=== PATIENT | female | born 1965 | race American Indian/Alaskan Native ===

== ENCOUNTER 2017-03-11 11:20 | Emergency (ER) | payer MEDICARE ==
[2017-03-11 12:04] VITALS: BP 142/78
--- NOTE | 2017-03-11 15:22 | Emergency Department Report ---
HPI - General Chief Complaint: Extremity Injury, Lower Time Seen by Provider: 03/11/17 15:07 - HPI HPI: This is a 52-year-old female with a history of third on Synthroid who presents to ED complaining of ankle pain the past 2 weeks. Patient states about 2 days ago the pain and ankle started getting worse. Patient states pain is aggravated by walking. She denies recent trauma or fall to the ankle. Patient denies fever/chills/nausea/vomiting/abdominal pain/chest pain/shortness of breath/pulmonary vision such headache or any other problems ED Past Medical Hx - Past Medical History Previous Medical History?: Yes Additional medical history: thyroid dis, anxiety, tendonitis, Left hip pain, Sciatica - Surgical History Past Surgical History?: Yes Additional Surgical History: Thyroidectomy, R. elbow repair. Partial hysterectomy - Social History Smoking Status: Never Smoker Substance Use Type: Alcohol, Prescribed - Medications Home Medications: Home Medications Medication Instructions Recorded Confirmed Last Taken Type Cyclobenzaprine [Flexeril] 10 mg PO QHS PRN #20 tablet 03/11/17 Unknown Rx Ibuprofen [Motrin 800 MG tab] 800 mg PO Q8HR PRN #20 tablet 03/11/17 Unknown Rx ED Review of Systems ROS: Stated complaint: LFT ANKLE/HIP PAIN Other details as noted in HPI Constitutional: denies: chills, fever Eyes: denies: eye pain, eye discharge, vision change ENT: denies: ear pain, throat pain Respiratory: denies: cough, shortness of breath, wheezing Cardiovascular: denies: chest pain, palpitations Endocrine: no symptoms reported Gastrointestinal: denies: abdominal pain, nausea, vomiting, diarrhea, constipation Genitourinary: denies: urgency, dysuria, frequency, hematuria, discharge Musculoskeletal: denies: back pain, joint swelling, arthralgia Skin: denies: rash, lesions Neurological: denies: headache, weakness, numbness, paresthesias Psychiatric: denies: anxiety, depression Hematological/Lymphatic: denies: easy bleeding, easy bruising Physical Exam - Physical Exam Vital Signs: Vital Signs 03/11/17 11:59 Temperature 97.8 F Pulse Rate 74 Respiratory 14 Rate Blood Pressure 142/78 O2 Sat by Pulse 99 Oximetry Physical Exam: GENERAL: Alert and oriented x3, no apparent distress, Normal Gait, atraumatic. HEAD: Head is normocephalic and a-traumatic. NECK: Supple. Non edematous, No carotid bruits. No lymphadenopathy or thyromegaly. No C-spine tenderness LUNGS: Symetrical with respiration, No wheezing, no rales or crackles, CTAB. HEART: S1, S2 present, regular rate and rhythm without murmur, no rubs, no gallops. ABDOMEN: No organomegaly was noted,Positive bowel sounds, soft, and non- distended. . Nontender to palpation on all Quadrants, NO CVA tenderness. EXTREMITIES/MUSCULOSKELETAL: No cyanosis, clubbing, rash, lesions or edema. Full ROM bilaterally. UE/LE Pulses 2+ bilaterally. LE and UE 5+ strength bilaterally, straight leg raise negative bilaterally. Tenderness to palpation of the left lateral aspect of the ankle. Nonedematous, nonerythematous, joint is intact. No dislocation, no ecchymoses NEUROLOGIC: No focal Deficit, Cranial nerves II through XII are grossly intact. No loss of sensation, PSYCHIATRIC: Mood is congruent with affect, denies suicidal or homicidal ideations. SKIN: Warm and dry, No lesions, No ulceration or induration present. ED Course Vital Signs 03/11/17 11:59 Temperature 97.8 F Pulse Rate 74 Respiratory 14 Rate Blood Pressure 142/78 O2 Sat by Pulse 99 Oximetry ED Medical Decision Making - Medical Decision Making 52 y.o female presents with left ankle pain ED course: Discussed the patient take medication as prescribed. Discussed to follow up with primary care physician. Discussed heat therapy and elevation of feet. Patient is in no acute or restricted distress extend her vital signs are normal. Patient states she understands the instructions and will comply and follow-up.. Critical care attestation.: If time is entered above; I have spent that time in minutes in the direct care of this critically ill patient, excluding procedure time. ED Disposition Clinical Impression: Arthralgia of ankle, left Disposition: DISCHARGED TO HOME OR SELFCARE Is pt being admited?: No Does the pt Need Aspirin: No Condition: Stable Instructions: Arthralgia (ED), Ankle Exercises (GEN) Additional Instructions: Follow-up with her primary care doctor. Rest and elevate ankle. Prescriptions: Cyclobenzaprine [Flexeril] 10 mg PO QHS PRN #20 tablet PRN Reason: Muscle Spasm Ibuprofen [Motrin 800 MG tab] 800 mg PO Q8HR PRN #20 tablet PRN Reason: Pain Referrals: NICOLAS KINNEY MD [Primary Care Provider] - 3-5 Days Time of Disposition: 15:46
== END 2017-03-11 16:14 | disposition home or self-care (01) ==
LOC: ED 11:20
DX: M25.572 Pain in left ankle and joints of left foot (principal)
CPT/HCPCS: 99282

== ENCOUNTER 2017-10-23 08:00 | Inpatient (IN) | payer MEDICARE ==
--- NOTE | 2017-10-22 21:54 | History and Physical Report ---
History of Present Illness Date of examination: 10/22/17 Date of admission: 10/23/2017 Chief complaint: pelvic pain History of present illness: 52y/o with a history of a vaginal hysterectomy for bleeding and uterine fibroids presents with the complaint of worsening pelvic pain. CT scan of the pelvis was unremarkable. The patient reports her pain is affecting her quality of life. She elects to have removal of her ovaries and tubes. Patient has been reassessed/reevaluated/re-examined. H&P has been reviewed. No interval changes. Past History Past Medical History: thyroid disease, other (anxiety disorder) Past Surgical History: other (thyroid lobectomy; vaginal hysterectomy) Social history: - Obstetrical History : 5 Para: 5 Medications and Allergies Allergies Allergy/AdvReac Type Severity Reaction Status Date / Time Sulfa (Sulfonamide Allergy Swelling Unverified 05/14/14 07:46 Antibiotics) Home Medications Medication Instructions Recorded Confirmed Last Taken Type Duloxetine HCl [Cymbalta] 60 mg PO DAILY 10/16/17 10/23/17 10/22/17 20:00 History Levothyroxine [Synthroid] 100 mcg PO QAM 10/16/17 10/23/17 10/23/17 06:00 History clonazePAM [ Klonopin] 0.5 mg PO BID PRN 10/16/17 10/23/17 10/22/17 19:00 History Review of Systems All systems: negative Genitourinary: pelvic pain - Physical Exam Breasts: Positive: deferred Cardiovascular: Regular rate Lungs: Positive: Clear to auscultation Abdomen: Positive: normal appearance Results Result Diagrams: 10/23/17 10:45 All other labs normal. Assessment and Plan - Patient Problems (1) Chronic pelvic pain in female Current Visit: Yes Status: Acute Plan to address problem: proceed with a robotic BSO
[~2017-10-23 08:00] MED LIST: ANCEF/STERILE WATER 2 GM/20 ML 2 GM/20 ML SYRINGE IV NR
[2017-10-23] MEDS ORDERED: LACTATED RINGERS 1,000 ML IV SCH (11:00)
[2017-10-23 11:19] LABS: Hematocrit 40.5 % (30.3-42.9); Hemoglobin 13.2 gm/dl (10.1-14.3); Mean Corpuscular HGB Conc 33 % (30-34); Mean Corpuscular Hemoglobin 30 pg (28-32); Mean Corpuscular Volume 92 fl (79-97); Platelet Count 339 K/mm3 (140-440); Red Cell Distribution Width 13.8 % (13.2-15.2); White Blood Count 4.1 K/mm3 (4.5-11.0)
--- NOTE | 2017-10-23 11:29 | Anesthesia Consultation ---
Anesthesia Consult and Med Hx Date of service: 10/23/17 - Airway Anesthetic Teeth Evaluation: Good ROM Head & Neck: Adequate Mental/Hyoid Distance: Adequate Mallampati Class: Class I Intubation Access Assessment: Good - Pulmonary Exam CTA: Yes - Cardiac Exam Cardiac Exam: RRR - Pre-Operative Health Status ASA Pre-Surgery Classification: ASA3 Proposed Anesthetic Plan: General - Pulmonary Hx Sleep Apnea: Yes (not yet diagnosed but told to go for a study) - Central Nervous System Hx Psychiatric Problems: Yes (anxiety and depression, on meds) - Gastrointestinal Hx Gastroesophageal Reflux Disease: Yes ("bad" on OTC meds.) - Endocrine Hx Hypothyroidism: Yes (on meds. thyroid removed) - Other Systems Hx Alcohol Use: Yes (occas, had a drink last night out of nerves) Hx Cancer: No
[2017-10-23] MEDS ORDERED: DECADRON ONE ×3 (11:30→13:37)
[2017-10-23] MEDS ORDERED: MARCAINE 0.5% 60 ML INFILTRATI ONE (11:30)
--- NOTE | 2017-10-23 11:30 | Anesthesia Day of Surgery ---
Anesthesia Day of Surgery - Day of Surgery Patient Examined: Yes Patient H&P Reviewed: Yes Patient is NPO: Yes
[2017-10-23] MEDS ORDERED: XYLOCAINE 1% 20 mL ONE (11:31)
[2017-10-23] MEDS ORDERED: VERSED IV NR (12:00)
[2017-10-23] MEDS ORDERED: PEPCID PO NR (12:00)
[2017-10-23] MEDS ORDERED: SUBLIMAZE IV ONE (12:00)
[2017-10-23] MEDS ORDERED: NEURONTIN PO NR (12:00)
[2017-10-23] MEDS ORDERED: DIPRIVAN 10 MG/ML IV ONE (12:16)
[2017-10-23] MEDS ORDERED: XYLOCAINE MPF 2% ONE (12:17)
[2017-10-23] MEDS ORDERED: ZEMURON IV ONE (12:17)
[2017-10-23] MEDS ORDERED: DILAUDID ONE (12:17)
[2017-10-23] MEDS ORDERED: ePHEDrine SULFATE ONE (12:46)
[2017-10-23] MEDS ORDERED: LACTATED RINGERS 1,000 ML ONE ×2 (13:08→15:27)
[2017-10-23] MEDS ORDERED: ZOFRAN ONE (13:37)
[2017-10-23] MEDS ORDERED: ROBINUL ONE (13:38)
[2017-10-23] MEDS ORDERED: NEOSTIGMINE ONE (13:38)
--- NOTE | 2017-10-23 13:48 | Operative Report ---
Operative Report Operative Report: Date of surgery: 10/23/2017 Preoperative diagnoses: Chronic pelvic pain Postoperative diagnoses: Same as above Procedure: Robotic bilateral salpingectomy and lysis of adhesions Surgeon: Sherita Martino M.D. Head Grease Maker: Troy Miller Anesthesia: Gen. endotracheal anesthesia Estimated blood loss: Minimal Pathology: BiLateral tubes and ovaries Indication: 52-year-old 004 with a history of worsening chronic pelvic pain. The patient has a prior history of a vaginal hysterectomy years ago for uterine fibroids. She reports that her recent pain had been worsening and affecting her quality of life Procedure: The patient was taken to the operating room and given general endotracheal anesthesia without complication. She is prepped and draped in a normal sterile fashion. A bivalve speculum was placed in the patient's vagina and a single- tooth tenaculum placed on the anterior lip of the cervix. The uterus was sounded with the uterine sound. A WoowUp uterine manipulator was placed in the bivalve speculum was then removed. Attention was then turned to the patient's abdomen where a millimeter supra umbilical skin incision was then made. A Veress needle was placed and peritoneal entry was verified water-filled syringe. Insufflation of the peritoneal cavity was performed with CO2 gas. The 12 mm trocar was then placed under direct visualization. An additional 8 mm trocar was placed on the patient's left and right lateral side just opposite of the supraumbilical trocar. An additional 10 mm right lateral trocar was then placed as the accessory port. The patient was then placed in steep Trendelenburg. The da Sara robot was then engaged. A fenestrated forcep was placed in arm 2 and a monopolar scissors was placed in arm 1. The surgeon then transferred to the surgical console. General survey revealed absence of the uterus. The tubes and ovaries were normal in appearance. The left adnexa was adherent to the left pelvic sidewall. There were also omental adhesions to the left and right pelvic sidewall. The monopolar scissors were used in order to lyse the adhesions of the omentum to the pelvic sidewall. The infundibulopelvic ligament was isolated on the left side. The ligament was then coagulated and cut transecting the tube and ovary from its blood supply. Attention was then turned to the patient's right side where additional lysis of adhesions were performed. The infundibulopelvic ligament was isolated. The infundibulopelvic ligament was then coagulated and transected. Endocath bags were placed through the 10 mm trocar and the right and left adnexa were removed via the Endo Catch bags. Irrigation of the pelvis was performed. Dani was applied to the incision. The supraumbilical 12 mm and 10 mm trocar sites were closed with the Aj Lopez device. The skin was then reapproximated with 4 -0 Monocryl. The tissue was sent to pathology which included bilateral tubes and ovaries. The patient was then successfully extubated. She was then taken to the recovery room in stable condition. All sponge laps and needle counts were correct x2.
[2017-10-23] MEDS ORDERED: NARCAN 0.4 MG/1 ML IV PRN (13:54)
[2017-10-23] MEDS ORDERED: MOTRIN PO PRN (13:55)
[2017-10-23] MEDS ORDERED: TYLENOL PO PRN (13:55)
[2017-10-23] MEDS ORDERED: MILK OF MAGNESIA PO PRN (13:55)
[2017-10-23] MEDS ORDERED: MORPHINE PCA 30MG/30ML IV SCH (14:00)
[2017-10-23] MEDS ORDERED: NACL 0.9% IR ONE ×2 (14:04)
[2017-10-23] MEDS: ZOFRAN IV PRN (21:21)
[2017-10-23] MEDS: D5LR 1,000 ML IV SCH (21:23)
[2017-10-24] MEDS: TORADOL IV SCH ×5 (01:50→19:35)
[2017-10-24] MEDS: D5LR 1,000 ML IV SCH (05:30)
[2017-10-24 05:34] LABS: Hematocrit 34.7 % (30.3-42.9); Hemoglobin 11.5 gm/dl (10.1-14.3)
[2017-10-24] MEDS: ZOFRAN IV PRN (05:34)
[2017-10-24] MEDS: PERCOCET 5/325 PO PRN (12:59)
--- NOTE | 2017-10-24 13:47 | Progress Note ---
Assessment and Plan POD#1 s/p robotic bilateral salpingectomy and lysis of adhesions Doing well ambulating well tolerating diet pain controlled urinating appropriately consider d/c home tonight f/u in 4 weeks Subjective - Subjective Date of service: 10/24/17 Principal diagnosis: s/p robotic bilateral salpingectomy and lysis of adhesions Patient reports: appetite normal, voiding normally, pain well controlled, flatus , ambulating normally Objective - Vital Signs Latest vital signs: Vital Signs Temp Pulse Resp BP BP Pulse Ox 10/24/17 08:38 97.3 F L 61 20 98/57 96 10/24/17 04:18 98.0 F 77 18 94/52 97 10/23/17 23:48 97.8 F 84 18 96/55 93 10/23/17 20:23 98.3 F 79 18 98/55 93 10/23/17 18:00 18 10/23/17 16:15 97.8 F 74 18 102/64 100 10/23/17 16:10 18 10/23/17 16:00 92 H 13 111/72 94 10/23/17 15:45 80 16 110/60 98 10/23/17 15:30 97.7 F 86 15 100/45 98 10/23/17 15:15 86 14 129/77 98 10/23/17 15:10 82 20 125/75 100 10/23/17 15:05 88 20 129/75 99 10/23/17 15:01 97.9 F 108 H 12 134/72 100 10/23/17 15:00 71 14 91/47 99 10/23/17 14:45 69 12 95/50 99 10/23/17 14:30 68 12 97/51 99 10/23/17 14:15 68 17 95/49 98 10/23/17 14:10 68 11 L 97/51 98 10/23/17 14:05 97.5 F L 81 21 108/61 98 Intake and Output 10/23/17 10/24/17 10/24/17 23:59 07:59 15:59 Intake Total 1440 120 Output Total 300 1650 Balance -300 -210 120 Intake: IV 1000 D5lr 1,000 ml @ 125 mls/ 1000 hr IV DIRECT MELIZA Rx#: [id number] Oral 440 120 Output: Urine 300 1250 Indwelling Catheter 300 1250 Emesis 400 Other: Total, Intake Amount 440 120 Total, Output Amount 300 1650 Voiding Method Indwelling Catheter - Exam Breasts: Present: normal Cardiovascular: Present: Regular rate, Normal S1 Lungs: Present: Clear to auscultation Abdomen: Present: normal appearance, soft, normal bowel sounds. Absent: distention, tenderness, guarding Vulva: both: normal Extremities: Present: normal Deep Tendon Reflex Grade: Normal +2 Incision: Present: normal, dry, intact
[2017-10-24] MEDS ORDERED: CITRATE OF MAGNESIA PO ONE (19:45)
[2017-10-25] MEDS: PERCOCET 5/325 PO PRN (06:06)
[2017-10-25] MEDS: TORADOL IV SCH ×2 (07:03→08:00)
--- NOTE | 2017-10-25 08:31 | Progress Note ---
Assessment and Plan A: POPD#2 s/p robotic hysterectomy P: Discharge today with follow up in [address] Martino Subjective - Subjective Date of service: 10/25/17 Principal diagnosis: s/p robotic bilateral salpingectomy and lysis of adhesions Interval history: No overnight events. Pt would like to go home. Patient reports: appetite normal, voiding normally, pain well controlled, flatus , bowel movement, ambulating normally Objective - Vital Signs Latest vital signs: Vital Signs Temp Pulse Resp BP Pulse Ox 10/24/17 16:21 98.7 F 87 20 105/55 100 10/24/17 12:39 97.7 F 67 20 97/55 92 10/24/17 08:38 97.3 F L 61 20 98/57 96 Intake and Output 10/24/17 10/25/17 10/25/17 22:59 06:59 14:59 Intake Total 120 620 Output Total 350 Balance -230 620 Intake: Oral 120 620 Output: Urine 350 Void 350 Other: Total, Intake Amount 120 620 Total, Output Amount 350 Voiding Method Toilet Toilet # Voids Void 3 # Bowel Movements 0 - Exam Breasts: Present: deferred Cardiovascular: Present: Regular rate Lungs: Present: Clear to auscultation Abdomen: Present: soft Extremities: Present: normal Incision: Present: intact
--- NOTE | 2017-10-25 08:32 | Discharge Summary ---
Providers - Providers Date of Admission: 10/23/17 11:24 Date of discharge: 10/25/17 Attending physician: EDWARD MARQUEZ Primary care physician: NICOLAS LOZANO MENG Hospitalization Reason for admission: other (hysterectomy ) Procedure details: Please see operative note. Incision: intact Other procedures: none complications: none Hospital course: Patient underwent robotic hysterectomy which she tolerated well. Her postoperative course, tenderness or discharge criteria on postoperative day #2. She'll follow-up in the office in [address] Marino. Condition at discharge: Stable Disposition: DC- TO HOME OR SELFCARE - Discharge Diagnoses (1) Obesity Status: Acute Qualifiers: Body mass index: BMI 37.0-37.9 (2) Chronic pelvic pain in female Status: Acute Plan - Discharge Medications Prescriptions: Ibuprofen [Motrin] 800 mg PO Q8HR PRN #60 tablet PRN Reason: Pain Oxycodone HCl/Acetaminophen [Percocet 7.5/325 mg] 1 each PO Q6HR PRN #30 tablet PRN Reason: Pain - Provider Discharge Summary Activity: routine, no sex for 6 weeks, no heavy lifting 4 weeks, no strenuous exercise Diet: routine Instructions: routine Additional instructions: [] Smoking cessation referral if applicable(refer to patient education folder for contact #) [] Refer to [facility] Booklet Call your doctor immediately for: * Fever > 100.5 * Heavy vaginal bleeding ( >1 pad per hour) * Severe persistent headache * Shortness of breath * Reddened, hot, painful area to leg or breast * Drainage or odor from incision. * Keep incision clean and dry at all times and follow doctor's instructions regarding bathing/showering - Follow up plan Follow up: NICOLAS KINNEY MD [Primary Care Provider] - 7 Days EDWARD MARQUEZ MD [Staff Physician] - 11/21/17 (Please call for postoperative appt )
[2017-10-25 09:20] VITALS: BP 117/56
== END 2017-10-25 11:00 | disposition home or self-care (01) | DRG 983 ==
LOC: OR 08:00 → OB 11:24
PROVIDERS: ADMIT Obstetrics & Gynecology; ATTEND Obstetrics & Gynecology
PROC: 0UT74ZZ Resection of Bilateral Fallopian Tubes, Percutaneous Endoscopic Approach (ICD-10-PCS; principal; 2017-10-23)
PROC: 8E0W4CZ Robotic Assisted Procedure of Trunk Region, Percutaneous Endoscopic Approach (ICD-10-PCS; 2017-10-23)
PROC: 0UT24ZZ Resection of Bilateral Ovaries, Percutaneous Endoscopic Approach (ICD-10-PCS; 2017-10-23)
DX: R10.2 Pelvic and perineal pain (principal); E66.9 Obesity, unspecified; Z68.37 Body mass index [BMI] 37.0-37.9, adult; Z88.2 Allergy status to sulfonamides; F32.9 Major depressive disorder, single episode, unspecified; F41.9 Anxiety disorder, unspecified; K21.9 Gastro-esophageal reflux disease without esophagitis; E03.9 Hypothyroidism, unspecified
CPT/HCPCS: 36415; 64450; 85014; 85018; 85027; 88305; A4217; J0690; J1100; J1170; J1885; J2250; J2270; J2405; J2704; J2710; J3010; J7120; J7121

== ENCOUNTER 2017-11-17 20:18 | Emergency (ER) | payer MEDICARE ==
[2017-11-17] MEDS ORDERED: ZOFRAN IM ONE (20:45)
[2017-11-17 21:11] LABS: Basophils # (Auto) 0.1 K/mm3 (0.0-0.1); Basophils % (Auto) 1.2 % (0.0-1.8); Eosinophils # (Auto) 0.1 K/mm3 (0.0-0.4); Eosinophils % (Auto) 2.2 % (0.0-4.3); Hematocrit 37.6 % (30.3-42.9); Hemoglobin 12.6 gm/dl (10.1-14.3); Lymphocytes # (Auto) 2.3 K/mm3 (1.2-5.4); Lymphocytes % (Auto) 41.1 % (13.4-35.0); Mean Corpuscular HGB Conc 33 % (30-34); Mean Corpuscular Hemoglobin 31 pg (28-32); Mean Corpuscular Volume 92 fl (79-97); Monocytes # (Auto) 0.5 K/mm3 (0.0-0.8); Monocytes % (Auto) 8.6 % (0.0-7.3); Platelet Count 312 K/mm3 (140-440); Red Blood Count 4.08 M/mm3 (3.65-5.03); Red Cell Distribution Width 13.9 % (13.2-15.2)
[2017-11-17 21:28] LABS: Alanine Aminotransferase 21 units/L (7-56); Albumin 4.2 g/dL (3.9-5); BUN/Creatinine Ratio 25; Blood Urea Nitrogen 15 mg/dL (7-17); Calcium 9.2 mg/dL (8.4-10.2); Hemolysis Index 6; Lipase 21 units/L (13-60)
[2017-11-17 21:47] LABS: Bilirubin,Urine NEG (Negative); Blood,Urine NEG (Negative); Color,Urine Yellow (Yellow); Mucus,Urine FEW /HPF; Nitrite,Urine NEG (Negative); Protein,Urine <15 mg/dL mg/dL (Negative); Urobilinogen,Urine < 2.0 mg/dL (<2.0)
--- NOTE | 2017-11-18 04:31 | Emergency Department Report ---
ED Abdominal Pain HPI - General Chief Complaint: Abdominal Pain Stated Complaint: ABDOMINAL PAIN,VOMITING Time Seen by Provider: 11/18/17 04:10 Source: patient, family Mode of arrival: Ambulatory Limitations: No Limitations - History of Present Illness Initial Comments: Patient reports that she has abdominal pain and vomiting 4 days. She said she had surgery on October 23 to have a robotic hysterectomy. She said she has have an pain 10 out of 10, nasal congestion and cough and cold. Denies any fever or chills. Denies any diarrhea. She says she is having urinary frequency which is not new and she has an appointment scheduled to see the doctor to talk to the doctor about this. Denies any drainage from abdomen. Denies any shortness of breath or chest pain. Denies any swelling to legs. Patient says she is seeing her Dr. Post surgery and she says she is doing fine she says that she is feeling cramping in her lower abdomen, nausea. Denies any vaginal bleeding. Denies any back pain. MD Complaint: abdominal pain, other (nausea with vomiting and, abdominal cramp, nasal congestion, drainage and cough and) Onset/Timin -: days(s) Location: suprapubic Radiation: none Migration to: no migration Severity: severe Severity scale (0 -10): 10 Quality: cramping Consistency: intermittent Context: recent surgery/procedure Associated Symptoms: nausea, vomiting. denies: diarrhea, fever, chills, constipation, dysuria, hematemesis, hematochezia, melena, hematuria, anorexia, syncope, other Treatments Prior to Arrival: prescription analgesics - Related Data Home Medications Medication Instructions Recorded Confirmed Last Taken Duloxetine HCl [Cymbalta] 60 mg PO DAILY 10/16/17 10/23/17 10/22/17 20:00 Levothyroxine [Synthroid] 100 mcg PO QAM 10/16/17 10/23/17 10/23/17 06:00 clonazePAM [ Klonopin] 0.5 mg PO BID PRN 10/16/17 10/23/17 10/22/17 19:00 Previous Rx's Medication Instructions Recorded Last Taken Type Ibuprofen [Motrin] 800 mg PO Q8HR PRN #60 tablet 10/23/17 Unknown Rx Oxycodone HCl/Acetaminophen 1 each PO Q6HR PRN #30 tablet 10/23/17 Unknown Rx [Percocet 7.5/325 mg] Cephalexin [Keflex] 500 mg PO Q8HR 7 Days #21 cap 11/18/17 Unknown Rx Cetirizine HCl [ZyrTEC] 10 mg PO QAM 14 Days #14 capsule 11/18/17 Unknown Rx Fluticasone [Flonase] 1 spray NS QDAY 14 Days #1 bottle 11/18/17 Unknown Rx Ondansetron [Zofran Odt] 4 mg PO Q8H PRN 4 Days #12 11/18/17 Unknown Rx tab.rapdis Allergies Allergy/AdvReac Type Severity Reaction Status Date / Time Sulfa (Sulfonamide Allergy Swelling Unverified 05/14/14 07:46 Antibiotics) ED Review of Systems ROS: Stated complaint: ABDOMINAL PAIN,VOMITING Other details as noted in HPI Comment: All other systems reviewed and negative Constitutional: no symptoms reported Eyes: denies: eye pain, eye discharge ENT: congestion. denies: ear pain, throat pain Respiratory: cough. denies: shortness of breath, SOB with exertion, SOB at rest , stridor, wheezing Cardiovascular: denies: chest pain, palpitations, dyspnea on exertion, edema, syncope Gastrointestinal: abdominal pain, nausea, vomiting. denies: diarrhea, constipation, hematemesis, melena, hematochezia Genitourinary: frequency. denies: urgency, dysuria, hematuria, discharge Musculoskeletal: denies: back pain, joint swelling, arthralgia, myalgia Skin: denies: rash Neurological: denies: headache ED Past Medical Hx - Past Medical History Previous Medical History?: Yes Hx Congestive Heart Failure: No Hx Diabetes: No Hx GERD: Yes Hx Asthma: No Additional medical history: thyroid dis, anxiety, tendonitis, Left hip pain, Sciatica - Surgical History Past Surgical History?: Yes Additional Surgical History: Thyroidectomy, R. elbow repair. Partial hysterectomy - Family History Family history: hypertension - Social History Smoking Status: Never Smoker Substance Use Type: None - Medications Home Medications: Home Medications Medication Instructions Recorded Confirmed Last Taken Type Duloxetine HCl [Cymbalta] 60 mg PO DAILY 10/16/17 10/23/17 10/22/17 20:00 History Levothyroxine [Synthroid] 100 mcg PO QAM 10/16/17 10/23/17 10/23/17 06:00 History clonazePAM [ Klonopin] 0.5 mg PO BID PRN 10/16/17 10/23/17 10/22/17 19:00 History Ibuprofen [Motrin] 800 mg PO Q8HR PRN #60 tablet 10/23/17 Unknown Rx Oxycodone HCl/Acetaminophen 1 each PO Q6HR PRN #30 tablet 10/23/17 Unknown Rx [Percocet 7.5/325 mg] Cephalexin [Keflex] 500 mg PO Q8HR 7 Days #21 cap 11/18/17 Unknown Rx Cetirizine HCl [ZyrTEC] 10 mg PO QAM 14 Days #14 capsule 11/18/17 Unknown Rx Fluticasone [Flonase] 1 spray NS QDAY 14 Days #1 bottle 11/18/17 Unknown Rx Ondansetron [Zofran Odt] 4 mg PO Q8H PRN 4 Days #12 11/18/17 Unknown Rx tab.rapdis ED Physical Exam - General Limitations: No Limitations General appearance: alert, in no apparent distress - Head Head exam: Present: atraumatic, normocephalic, normal inspection - Eye Eye exam: Present: normal appearance, PERRL, EOMI. Absent: scleral icterus, conjunctival injection, nystagmus, periorbital swelling, periorbital tenderness Pupils: Present: normal accommodation - ENT ENT exam: Present: normal orophraynx, mucous membranes moist, normal external ear exam, other (bilateral nasal mucosa erythema, congested with clear drainage. No frontal or meds or sinus tenderness). Absent: normal exam, TM's normal bilaterally (bilateral TM congested without erythema.) - Neck Neck exam: Present: normal inspection, full ROM, other (no C-spine tenderness). Absent: tenderness, meningismus, lymphadenopathy, thyromegaly - Respiratory Respiratory exam: Present: normal lung sounds bilaterally. Absent: respiratory distress, chest wall tenderness, accessory muscle use - Cardiovascular Cardiovascular Exam: Present: regular rate, normal rhythm, normal heart sounds. Absent: systolic murmur, diastolic murmur - GI/Abdominal GI/Abdominal exam: Present: soft, normal bowel sounds, other (noted healed laparoscopic wounds to abdomen. No signs of infection). Absent: distended, tenderness, guarding, rebound, rigid, organomegaly, mass, bruit, pulsatile mass , hernia - Extremities Exam Extremities exam: Present: normal inspection, full ROM, normal capillary refill , other (no clubbing, cyanosis or edema. +2 pulses to all extremities. No neurovascular compromise.). Absent: tenderness, pedal edema, joint swelling, calf tenderness - Back Exam Back exam: Present: normal inspection, full ROM, other (patient ambulates without any difficulties). Absent: tenderness, CVA tenderness (R), CVA tenderness (L), muscle spasm, paraspinal tenderness, vertebral tenderness, rash noted - Neurological Exam Neurological exam: Present: alert, oriented X3, normal gait, reflexes normal. Absent: motor sensory deficit - Psychiatric Psychiatric exam: Present: normal affect, normal mood - Skin Skin exam: Present: warm, dry, intact, normal color. Absent: rash ED Course Vital Signs 11/17/17 11/18/17 20:25 07:16 Temperature 97.7 F 98.5 F Pulse Rate 81 71 Respiratory 16 16 Rate Blood Pressure 125/84 Blood Pressure 127/80 [Right] O2 Sat by Pulse 100 98 Oximetry - Reevaluation(s) Reevaluation #1: 11/18/17 07:59 Patient received Toradol 30 mg IV and Zofran 4 mg IV emergency room for nausea and vomiting. Prior to coming in the emergency room she received Zofran 4 mg and triage area. Patient urinalysis positive for bacterial infection and urine culture sent. ED Medical Decision Making - Lab Data Result diagrams: 11/17/17 20:55 11/17/17 20:55 Lab Results 11/17/17 11/17/17 11/17/17 Range/Units 20:53 20:55 20:55 WBC 5.5 (4.5-11.0) K/mm3 RBC 4.08 (3.65-5.03) M/mm3 Hgb 12.6 (10.1-14.3) gm/dl Hct 37.6 (30.3-42.9) % MCV 92 (79-97) fl MCH 31 (28-32) pg MCHC 33 (30-34) % RDW 13.9 (13.2-15.2) % Plt Count 312 (140-440) K/mm3 Lymph % (Auto) 41.1 H (13.4-35.0) % [place] % (Auto) 8.6 H (0.0-7.3) % Eos % (Auto) 2.2 (0.0-4.3) % Baso % (Auto) 1.2 (0.0-1.8) % Lymph # 2.3 (1.2-5.4) K/mm3 [place] # 0.5 (0.0-0.8) K/mm3 Eos # 0.1 (0.0-0.4) K/mm3 Baso # 0.1 (0.0-0.1) K/mm3 Seg Neutrophils % 46.9 (40.0-70.0) % Seg Neutrophils # 2.6 (1.8-7.7) K/mm3 Sodium 140 (137-145) mmol/L Potassium 4.2 (3.6-5.0) mmol/L Chloride 101.5 (98-107) mmol/L Carbon Dioxide 24 (22-30) mmol/L Anion Gap 19 mmol/L BUN 15 (7-17) mg/dL Creatinine 0.6 L (0.7-1.2) mg/dL Estimated GFR > 60 ml/min BUN/Creatinine Ratio 25 % Glucose 106 H (65-100) mg/dL Calcium 9.2 (8.4-10.2) mg/dL Total Bilirubin 0.20 (0.1-1.2) mg/dL AST 21 (5-40) units/L ALT 21 (7-56) units/L Alkaline Phosphatase 60 (35-129) units/L Total Protein 6.6 (6.3-8.2) g/dL Albumin 4.2 (3.9-5) g/dL Albumin/Globulin Ratio 1.8 % Lipase 21 (13-60) units/L Urine Color Yellow (Yellow) Urine Turbidity Clear (Clear) Urine pH 5.0 (5.0-7.0) Ur Specific [place] 1.029 (1.003-1.030) Urine Protein <15 mg/dl (Negative) mg/dL Urine Glucose (UA) Neg (Negative) mg/dL Urine Ketones Neg (Negative) mg/dL Urine Blood Neg (Negative) Urine Nitrite Neg (Negative) Urine Bilirubin Neg (Negative) Urine Urobilinogen < 2.0 (<2.0) mg/dL Ur Leukocyte Esterase Sm (Negative) Urine WBC (Auto) 8.0 H (0.0-6.0) /HPF Urine RBC (Auto) 3.0 (0.0-6.0) /HPF U Epithel Cells (Auto) 1.0 (0-13.0) /HPF Urine Mucus Few /HPF Urine culture sent - Radiology Data Radiology results: report reviewed CT scan of the abdomen and pelvis with IV Contrast shows patient with no acute abdominal or pelvic findings. Patient's recently had hysterectomy wound which was seen and she has no free fluid in the pelvic. Appendix is normal kidney is our normal small and large bowels are normal with no free air or fluid seen. Superficial soft tissue are unremarkable for sequela of prior abdominal surgery. No acute or aggressive appearing skeletal findings Critical care attestation.: If time is entered above; I have spent that time in minutes in the direct care of this critically ill patient, excluding procedure time. ED Disposition Clinical Impression: Postoperative lower abdominal pain, Acute cystitis without hematuria, Common cold, Nausea and vomiting in adult Disposition: DC-01 TO HOME OR SELFCARE Is pt being admited?: No Does the pt Need Aspirin: No Condition: Stable Instructions: Abdominal Pain (ED), Urinary Tract Infection in Women (ED), Cold Symptoms (ED), Acute Nausea and Vomiting (ED) Additional Instructions: Please call your surgeon and leg a surgeon noted that you're in emergency room for abdominal pain and nausea. Your CT scan showed no abnormalities in the abdomen or pelvis. Takes Zyrtec and Flonase and this will help with you nasal congestion and cold symptoms. Take Zofran to help with nausea and vomiting and Take Keflex 3 times a day this is an antibiotic for urinary tract infection and also will help with nasal sinusitis. Prescriptions: Cephalexin [Keflex] 500 mg PO Q8HR 7 Days #21 cap Cetirizine HCl [ZyrTEC] 10 mg PO QAM 14 Days #14 capsule Fluticasone [Flonase] 1 spray NS QDAY 14 Days #1 bottle Ondansetron [Zofran Odt] 4 mg PO Q8H PRN 4 Days #12 tab.rapdis PRN Reason: Nausea And Vomiting Referrals: JASWINDER ORANTES MD [Primary Care Provider] - 2-3 Days Forms: Work/School Release Form(ED), Accompanied Note
[2017-11-18] MEDS ORDERED: ZOFRAN IV ONE (04:48)
[2017-11-18] MEDS ORDERED: TORADOL IV ONE (04:48)
--- NOTE | 2017-11-18 06:32 | Cat Scan Report ---
FINAL REPORT EXAM: CT ABDOMEN PELVIS W CON HISTORY: abdomuinal pain post op 26 days. hysterectomy TECHNIQUE: CT images are acquired through the Abdomen and Pelvis arterial and delayed phases following intravenous administration of with contrast. Transaxial, coronal and sagittal reformations are provided. PRIORS: None FINDINGS: Partially visualized intrathoracic contents are unremarkable. The liver, gallbladder, pancreas, spleen, and adrenal glands are unremarkable. Kidneys show no worrisome lesions, hydronephrosis, or calculi. Small renal cysts are present bilaterally. Urinary bladder is unremarkable. Small and large bowel are normal in caliber. Appendix is normal. No free air, free fluid, or lymphadenopathy identified. Aorta is normal in course and caliber. Prior hysterectomy. Pelvic phleboliths. No free fluid in the pelvis. Superficial soft tissues are remarkable for sequela of prior abdominal surgery.. No acute or aggressive appearing skeletal findings. IMPRESSION: No acute findings in the abdomen or pelvis.
[2017-11-18 07:18] VITALS: BP 127/80
== END 2017-11-18 08:28 | disposition home or self-care (01) ==
LOC: ED 20:18
DX: N30.00 Acute cystitis without hematuria (principal); R11.2 Nausea with vomiting, unspecified; R10.30 Lower abdominal pain, unspecified; R05 Cough; G89.18 Other acute postprocedural pain; K21.9 Gastro-esophageal reflux disease without esophagitis; Z88.2 Allergy status to sulfonamides
CPT/HCPCS: 36415; 74177; 80053; 81001; 83690; 85025; 87086; 96372; 96374; 96375; 99284; J1885; J2405; Q9967